=== PATIENT | female | born 1965 | race Caucasian/White ===

== ENCOUNTER 2016-08-29 16:39 | Emergency (ER) | payer BC, MEDICAID ==
[2016-08-29 18:31] VITALS: BP 130/65
--- NOTE | 2016-08-29 18:53 | UC ---
Complaint Female HPI - HPI Summary HPI Summary: Patient presents to ED with CC of flu like symptoms and urinary symptoms including fatigue, sore throat, nausea, weakness, decreased urination and body aches x 2 days. She has had a flu vaccination this year. She endorses sick contacts. She denies travel. She denies constipation, diarrhea, abd pain or back pain. Denies previous UTI's. - History Of Current Complaint Chief Complaint: UCGeneralIllness Stated Complaint: URINARY Time Seen by Provider: 08/29/16 17:57 Hx Obtained From: Patient Hx Last Menstrual Period: 07/02/16 ?: No Onset/Duration: Sudden Onset Timing: Constant Severity Initially: Moderate Severity Currently: Moderate Pain Scale Used: 0-10 Numeric Character: Not Applicable Aggravating Factor(s): Coughing Alleviating Factor(s): Nothing Associated Signs And Symptoms: Positive: Fever, Nausea - Risk Factors Ectopic Risk Factor: Maternal Age ^ 30 - Allergies/Home Medications Allergies/Adverse Reactions: Allergies Allergy/AdvReac Type Severity Reaction Status Date / Time Codeine Allergy Intermediate GI Upset Verified 08/29/16 18:31 PMH/Surg Hx/FS Hx/Imm Hx Previously Healthy: Yes Cardiovascular History Of: Reports: Hypertension - Surgical History Surgical History: Yes Surgery Procedure, Year, and Place: c sect x 2, tonsills, dmc's - Family History Known Family History: Positive: Hypertension - Social History Occupation: Unemployed Lives: With Family Alcohol Use: Rare Substance Use Type: None Smoking Status (MU): Never Smoked Tobacco Review of Systems Constitutional: Fever, Chills, Fatigue Skin: Negative Eyes: Negative ENT: Sore Throat Respiratory: Cough Cardiovascular: Negative Gastrointestinal: Vomiting, Diarrhea Genitourinary: Negative Motor: Negative Neurovascular: Negative Neurological: Headache, Weakness Psychological: Negative All Other Systems Reviewed And Are Negative: Yes Physical Exam Triage Information Reviewed: Yes Appearance: Well-Appearing, Well-Nourished Vital Signs: Initial Vital Signs Temp 99.1 F 08/29/16 18:27 Pulse 91 08/29/16 18:27 Resp 18 08/29/16 18:27 BP 130/65 08/29/16 18:27 Pulse Ox 97 08/29/16 18:27 Vital Signs Reviewed: Yes Eye Exam: Normal Eyes: Positive: Conjunctiva Clear ENT Exam: Normal ENT: Positive: Normal ENT inspection, Pharynx normal Dental Exam: Normal Neck exam: Normal Neck: Positive: Supple, Nontender, No Lymphadenopathy Respiratory Exam: Normal Respiratory: Positive: Chest non-tender, Lungs clear Cardiovascular Exam: Normal Cardiovascular: Positive: RRR Abdominal Exam: Normal Abdomen Description: Positive: Nontender, No Organomegaly Bowel Sounds: Positive: Present Musculoskeletal Exam: Normal Musculoskeletal: Positive: Strength Intact, ROM Intact Neurological Exam: Normal Psychological Exam: Normal Psychological: Positive: Normal Response To Family Skin Exam: Normal Complaint Female Dx - Course Course Of Treatment: UA negative. Flu negative. Patient given note for work for 2 days. Afebrile currently. Patient given rx for zofran. Patient OK with discharge and will follow up as needed with her PCP. - Differential Dx/Diagnosis Differential Diagnosis/HQI/PQRI: Pelvic Inflammatory Disease, Renal Colic, Ureteral Stone, Urinary Tract Infection Provider Diagnoses: Upper respiratory viral illness Discharge - Discharge Plan Condition: Stable Disposition: HOME Prescriptions: Ondansetron ODT TAB* [Zofran 4 MG Odt TAB*] 4 mg PO Q6H PRN #10 tab.odt MDD 4 PRN Reason: Nausea Patient Education Materials: Viral Syndrome (ED) Additional Instructions: Humidifier in the home will help. Rest. Drink plenty of fluids. If you feel you cannot get enough fluids, supplement with gatorade or tomato juice. Tylenol 650mg three times daily as needed for fever and discomfort. As you begin to eat again, breads, hot soups, rice, bananas and applesauce will be easy on your stomach. Zofran as needed for nausea. You may take this up to 4 times daily.
== END 2016-08-29 19:20 | disposition home or self-care (01) ==
LOC: UCCORT 16:39
DX: J06.9 Acute upper respiratory infection, unspecified (principal); Z88.5 Allergy status to narcotic agent
CPT/HCPCS: 81003; 99212; G0463

== ENCOUNTER 2016-09-27 14:30 | Emergency (ER) | payer BC, MEDICAID ==
[2016-09-27 15:28] VITALS: BP 127/93
--- NOTE | 2016-09-27 15:47 | UC ---
Respiratory Complaint HPI - HPI Summary HPI Summary: HYLTON, BOdy Aches, fever and chills, SOB and wheezing for the past few days. - History of Current Complaint Chief Complaint: UCRespiratory Stated Complaint: MUSCLE ACHES Time Seen by Provider: 09/27/16 15:25 Hx Obtained From: Patient Hx Last Menstrual Period: 09/11/16 ?: No Onset/Duration: Sudden Onset, Lasting Days Timing: Constant Severity Initially: Mild Severity Currently: Moderate Character: Cough: Nonproductive Aggravating Factors: Exertion, Deep Breaths, Recumbent Position Alleviating Factors: Nothing Associated Signs And Symptoms: Positive: Fever, Chills, Wheezing, URI - Allergies/Home Medications Allergies/Adverse Reactions: Allergies Allergy/AdvReac Type Severity Reaction Status Date / Time Codeine Allergy Intermediate GI Upset Verified 09/27/16 15:28 PMH/Surg Hx/FS Hx/Imm Hx Previously Healthy: Yes Cardiovascular History Of: Reports: Hypertension - Surgical History Surgical History: Yes Surgery Procedure, Year, and Place: c sect x 2, tonsills, d&c's - Family History Known Family History: Positive: Hypertension - Social History Alcohol Use: Daily Alcohol Amount: few beers daily Substance Use Type: None Smoking Status (MU): Current Every Day Smoker Review of Systems Constitutional: Fever, Chills, Fatigue Skin: Negative Eyes: Negative ENT: Negative Respiratory: Shortness Of Breath, Cough Cardiovascular: Negative Gastrointestinal: Negative Genitourinary: Negative Motor: Negative Neurovascular: Negative Musculoskeletal: Arthralgia Neurological: Headache Psychological: Negative All Other Systems Reviewed And Are Negative: Yes Physical Exam Triage Information Reviewed: Yes Appearance: Well-Nourished, Ill-Appearing, Pain Distress Vital Signs: Initial Vital Signs Temp 98.1 F 09/27/16 15:25 Pulse 91 09/27/16 15:25 Resp 14 09/27/16 15:25 BP 127/93 09/27/16 15:25 Pulse Ox 94 09/27/16 15:25 Vital Signs Reviewed: Yes Eye Exam: Normal Eyes: Positive: Conjunctiva Clear ENT: Positive: Pharyngeal erythema, Nasal congestion, TM bulging, Muffled/ hoarse voice Dental Exam: Normal Neck exam: Normal Neck: Positive: Supple Respiratory: Positive: Chest non-tender, No respiratory distress, No accessory muscle use, Wheezing, Inspiration Cardiovascular Exam: Normal Cardiovascular: Positive: RRR, No Murmur, Pulses Normal Abdominal Exam: Normal Abdomen Description: Positive: Nontender, No Organomegaly, Soft Bowel Sounds: Positive: Present Musculoskeletal Exam: Normal Musculoskeletal: Positive: Strength Intact, ROM Intact, No Edema Neurological Exam: Normal Neurological: Positive: Alert, Muscle Tone Normal Psychological Exam: Normal Skin Exam: Normal UC Diagnostic Evaluation - Laboratory O2 Sat by Pulse Oximetry: 94 Respiratory Course/Dx - Course Course Of Treatment: hx obtained, exam performed, meds reviewed, rapid flu obtained. - Differential Dx/Diagnosis Differential Diagnosis/HQI/PQRI: Asthma, Bronchitis, Laryngitis, Lower Resp Infection, Sinusitis Provider Diagnoses: Bronchitis. Fever Discharge - Discharge Plan Condition: Stable Disposition: HOME Prescriptions: Albuterol HFA INHALER* [Ventolin HFA Inhaler*] 2 puff INH Q4H PRN #1 mdi PRN Reason: Cough predniSONE TAB* [Deltasone TAB*] 40 mg PO DAILY #14 tab Patient Education Materials: Acute Bronchitis (ED) Forms: *Work Release Referrals: Ashley Harmon PA [Primary Care Provider] - Additional Instructions: 1. Take the medications as prescribed. 2. Increase your fluid intake and get plenty of rest. 3. Ibuprofen and tylenol for pain and fever. 4. follow up with any worsening symptoms.
== END 2016-09-27 16:14 | disposition home or self-care (01) ==
LOC: UCCORT 14:30
DX: J40 Bronchitis, not specified as acute or chronic (principal); R50.9 Fever, unspecified; I10 Essential (primary) hypertension; Z88.5 Allergy status to narcotic agent; F17.210 Nicotine dependence, cigarettes, uncomplicated
CPT/HCPCS: 87502; 99212; G0463

== ENCOUNTER 2017-03-23 16:15 | Emergency (ER) | payer BC, MEDICAID ==
[2017-03-23 16:53] VITALS: BP 141/71
--- NOTE | 2017-03-23 17:00 | UC ---
Neck Pain HPI - HPI Summary HPI Summary: 51 year old female presents with complains of fever, neck pain and congestion. - History of Current Complaint Chief Complaint: UCGeneralIllness Stated Complaint: NECK PAIN FATIGUE ACHY Time Seen by Provider: 03/23/17 16:59 Hx Obtained From: Patient Hx Last Menstrual Period: n/a Timing: Constant Onset/Duration: Sudden Onset Severity: Moderate Pain Scale Used: 0-10 Numeric - 5 Character: Sharp Aggravating Factors: Movement Alleviating Factors: Nothing - Allergies/Home Medications Allergies/Adverse Reactions: Allergies Allergy/AdvReac Type Severity Reaction Status Date / Time Codeine Allergy Intermediate GI Upset Verified 03/23/17 16:53 PMH/Surg Hx/FS Hx/Imm Hx Previously Healthy: Yes - Surgical History Surgical History: Yes Surgery Procedure, Year, and Place: c sect x 2, tonsills, d&c's - Family History Known Family History: Positive: Hypertension - Social History Alcohol Use: Daily Alcohol Amount: few beers daily Substance Use Type: None Smoking Status (MU): Current Every Day Smoker Type: Cigarettes Amount Used/How Often: 1/2 ppd Review Of Systems Constitutional: Positive: Fever, Chills, Fatigue Eyes: Positive: Negative ENT: Positive: Negative Respiratory: Positive: Negative Cardiovascular: Positive: Negative Gastrointestinal: Positive: Negative Genitourinary: Positive: Negative Musculoskeletal: Positive: Myalgia, Other: - neck pain Neurological: Positive: Negative Psychological: Positive: Negative All Other Systems Reviewed And Are Negative: Yes Physical Exam Triage Information Reviewed: Yes Appearance: Ill-Appearing Vital Signs: Initial Vital Signs Temp 36.8 C 03/23/17 16:45 Pulse 89 03/23/17 16:45 Resp 16 03/23/17 16:45 BP 141/71 03/23/17 16:45 Pulse Ox 98 03/23/17 16:45 Vital Signs Reviewed: Yes Eye Exam: Normal ENT Exam: Normal Dental Exam: Normal Neck exam: Normal Neck: Positive: 1 Respiratory Exam: Normal Cardiovascular Exam: Normal Abdominal Exam: Normal Musculoskeletal Exam: Normal Neurological Exam: Normal Psychological Exam: Normal Skin Exam: Normal Neck Pain Course/Dx - Differential Dx/Diagnosis Provider Diagnoses: fever. bodyaches. neck pain Discharge - Discharge Plan Condition: Stable Disposition: HOME Patient Education Materials: Weakness (ED), Fatigue (ED), Back Pain (ED) Forms: *Work Release Referrals: Ashley Harmon PA [Primary Care Provider] -
== END 2017-03-23 17:25 | disposition home or self-care (01) ==
LOC: UCCORT 16:15
DX: M54.2 Cervicalgia (principal); R50.9 Fever, unspecified; F17.210 Nicotine dependence, cigarettes, uncomplicated; Z88.6 Allergy status to analgesic agent
CPT/HCPCS: 87502; 99211; G0463

== ENCOUNTER 2018-01-22 20:51 | Emergency (ER) | payer BC, MEDICAID ==
--- OUTSIDE RECORDS SUMMARY | 2018-01-22 21:04 | XMS REPORT ---
:1965 External Reference #:[id number] Author Organization [facility] M.D. Address [address] [place] [address] Phone [phone] Care Team Providers Name Role Phone Ashley Harmon PA Care Team Information Service Desk Director Unavailable Payers Type Date Identification Numbers Payment Provider Subscriber Commercial Effective: Policy Number: [id number] / [place]- Ppo Arthur Yelena 2013 PayID: [id number] [address] [address] [place] [address] Medigap Part B Effective: Policy Number: Medicaid [facility] Ramila Reeveslon 2008 [id number] [employer] Expires: 2018 Group Name: 1 2 B [address] PayID: [id number] [place] [address] Problems Date Description Provider Status Onset: 04/26/2011 Essential hypertension Ashley Harmon, PA Active Onset: 04/26/2011 Basal Cell Carcinoma Skin ,Site Unspecified Ashley Harmon PA Active Onset: 04/26/2011 Asthma without status asthmaticus Ashley Harmon, PA Active Onset: 04/26/2011 Allergic rhinitis Ashley Harmon, PA Active Onset: 04/26/2011 Anxiety state Ashley Harmon, PA Active Onset: 04/26/2011 Benign essential hypertension Ashley Harmon, PA Active Onset: 04/26/2011 Gastroesophageal reflux disease Ashley Harmon, PA Active Onset: 01/01/2012 Psoriasis Ashley Harmon, PA Active Onset: 11/06/2013 Posttraumatic stress disorder Ashley Harmon PA Active Social History Type Date Description Comments Marital Status Has been 1 time Lives With Spouse Lives With Children Pets 1 cat Pets 1 dog 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 for nausea Azelastine HCL 05/22/ Active Solution 0.05% 6ml one drop in H10.45 [facility] (Ophthalmic) 2015 each eye [place]an twice a day os, M.D. Budesonide 05/22/ Active Suspension 32mcg/Act 8.600 2 sprays J30.9 [facility] 2015 gm each [place] nostril os, M.D. daily Loratadine 05/22/ Active Tablets 10mg 30tab 1 by mouth J30.9 [facility] 2015 s every day [place] os, M.D. Duloxetine HCL 02/20/ Active Caps DR 60mg 30cap Take 1 [facility] 2015 Part s Capsule By Castellan Mouth Every os, M.D. Day Clobetasol 11/23/ Active Foam 0.05% 50uni apply to [facility] Propionate 2014 ts scalp twice Castellan daily as os, M.D. needed for psoriasis. pt needs appt for refills Lisinopril-Hydr 10/08/ Active Tablets 20-12.5mg 30tab Take 1 [facility] ochlorothiazide 2013 s Tablet By Castellan Mouth Every os, M.D. Day,Needs Appt For Further Med Refills Olux 07/02/ Active Foam 0.05% 50uni apply to L40.0 [facility]enez 2013 ts scalp twice Castellan a day as os, M.D. needed for psoriasis Triamcinolone 04/23/ Active Cream 0.025% 60gra apply to [facility] Acetonide 2011 ms affected [place]an area twice os, M.D. a day for 2-3 days as need for dermatiits Dovonex 04/23/ Active Cream 0.005% 60uni apply to [facility]enez 2011 ts affected [place] area twice os, M.D. a day as directed Omeprazole 03/13/ Active Capsules DR 20mg 30cap Take One [facility]enez 2011 s Capsule By [place]ellan Mouth Every os, M.D. Day Needs Appt For Further Refills Cymbalta 11/01/ Active Caps DR 60mg 30cap take one [facility]enez 2011 Part s capsule by Castellan mouth every os, M.D. day,needs appt for further refill Zestorectic 10/08/ Hx 20/12.5mg 90uni one qd [facility] 2014 - ts Castellan 10/07/ os, M.D. 2014 Campral 10/18/ Hx Tablets DR 333mg 30tab one tid 303.92 [facility] 2012 - s [place]an 01/28/ os, M.D. 2012 Amoxicillin 01/22/ Hx Tablets 875mg 20tab 1 po bid 461.1 [facility] 2011 - s [place]an 04/02/ os, M.D. 2012 Amlodipine 07/11/ Hx Tablets 5mg 90tab Take 1 I10 [facility] Besylate 2011 - s Tablet By Castellan 06/22/ Mouth Every os, M.D. 2015 Day Lisinopril/Hydr 05/11/ Hx Tablets 20-12.5mg 90tab take one 401.9 [facility] ochlorothiazide 2010 - s tablet by Castellan 10/08/ mouth daily os, M.D. 2013 Immunizations CPT Code Status Date Vaccine Reaction Lot # [id number] Given 02/22/2016 Influenza risk & benefits [id number] Vac,Quad,Split=>3 Yrs discussed [id number] 09043 Given 03/29/2015 Influenza risk & benefits flu>3 [id number] s Vac,Quad,Split=>3 Yrs discussed 08475 Given 04/02/2013 Flu Triv Old Code risk & benefits flu [id number] discussed 38832 Given 04/01/2012 Flu Triv Old Code [id number] 71523 Given 03/28/2011 Tdap Vaccine over 7 yrs old 46113 Given 03/28/2011 Flu Triv Old Code 75379 Given 03/01/2010 Flu Triv Old Code 23829 Given 02/26/2008 Flu Triv Old Code Vital Signs Date Vital Result Comment 01/07/2018 Weight 183.00 lb BP Systolic 140 mmHg BP Diastolic 80 mmHg 10/31/2017 Weight 185.00 lb BP Systolic 170 mmHg BP Diastolic 90 mmHg 07/23/2017 Weight 187.00 lb Heart Rate 104 /min Body Temperature 100.2 F O2 % BldC Oximetry 99 % 07/03/2017 Weight 186.00 lb BP Systolic 134 mmHg BP Diastolic 80 mmHg Height 69 inches 5'9" Heart Rate 78 /min Body Temperature 98.0 F Respiratory Rate 12 /min BMI (Body Mass Index) 27.5 kg/m2 06/15/2017 BP Systolic 130 mmHg BP Diastolic 84 mmHg 06/15/2017 Weight 190.00 lb BP Systolic 150 mmHg BP Diastolic 84 mmHg 05/09/2017 Weight 185.00 lb BP Systolic 160 mmHg BP Diastolic 90 mmHg 12/07/2016 Weight 192.00 lb BP Systolic 142 mmHg BP Diastolic 90 mmHg 06/30/2016 Weight 197.00 lb BP Systolic 134 mmHg BP Diastolic 82 mmHg Height 69 inches 5'9" Heart Rate 76 /min Body Temperature 98.7 F Respiratory Rate 14 /min BMI (Body Mass Index) 29.1 kg/m2 05/22/2016 Weight 191.00 lb BP Systolic 130 mmHg BP Diastolic 78 mmHg 02/22/2016 Weight 186.00 lb BP Systolic 134 mmHg BP Diastolic 80 mmHg 06/22/2015 Weight 185.00 lb BP Systolic 130 mmHg BP Diastolic 80 mmHg Height 69 inches 5'9" Heart Rate 78 /min Body Temperature 98.8 F Respiratory Rate 14 /min BMI (Body Mass Index) 27.3 kg/m2 03/29/2015 Weight 186.00 lb BP Systolic 130 mmHg BP Diastolic 78 mmHg 10/07/2014 Weight 187.00 lb BP Systolic 128 mmHg BP Diastolic 78 mmHg 06/18/2014 Weight 165.00 lb BP Systolic 130 mmHg BP Diastolic 86 mmHg Height 68.45 inches 5'8.45" Heart Rate 87 /min Body Temperature 98.8 F O2 % BldC Oximetry 97 % BMI (Body Mass Index) 24.8 kg/m2 12/19/2013 Weight 156.00 lb BP Systolic 120 mmHg BP Diastolic 80 mmHg Body Temperature 98.6 F 09/30/2013 Weight 152.00 lb BP Systolic 124 mmHg BP Diastolic 74 mmHg 07/02/2013 Weight 153.00 lb BP Systolic 126 mmHg BP Diastolic 74 mmHg 04/02/2013 Weight 163.00 lb BP Systolic 130 mmHg BP Diastolic 80 mmHg Height 68.6 inches 5'8.60" Heart Rate 78 /min Body Temperature 98.4 F Respiratory Rate 12 /min BMI (Body Mass Index) 24.3 kg/m2 03/07/2013 Weight 167.00 lb BP Systolic 130 mmHg BP Diastolic 80 mmHg 01/28/2013 BP Systolic 128 mmHg BP Diastolic 74 mmHg 01/28/2013 Weight 173.00 lb BP Systolic 130 mmHg BP Diastolic 80 mmHg 01/06/2013 BP Systolic 130 mmHg BP Diastolic 70 mmHg 01/06/2013 Weight 177.00 lb BP Systolic 140 mmHg BP Diastolic 78 mmHg 12/24/2012 BP Systolic 120 mmHg BP Diastolic 80 mmHg 12/24/2012 Weight 177.00 lb BP Systolic 140 mmHg BP Diastolic 80 mmHg 10/31/2012 Weight 176.00 lb BP Systolic 120 mmHg BP Diastolic 76 mmHg 10/18/2012 BP Systolic 130 mmHg BP Diastolic 80 mmHg 10/18/2012 Weight 181.00 lb BP Systolic 140 mmHg BP Diastolic 88 mmHg 10/09/2012 Weight 176.00 lb BP Systolic 130 mmHg BP Diastolic 80 mmHg 04/01/2012 Weight 184.00 lb BP Systolic 128 mmHg BP Diastolic 80 mmHg Height 66 inches 5'6" Heart Rate 80 /min Body Temperature 98.6 F Respiratory Rate 16 /min BMI (Body Mass Index) 29.7 kg/m2 01/23/2012 Weight 180.00 lb Height 66.6 inches 5'6.60" Body Temperature 98.8 F BMI (Body Mass Index) 28.5 kg/m2 Results Test Date Test Result H/L Range Note Rapid Influenza A & B 07/23/2017 Influenza A Molecular NEGATIVE Negative 1 Molecular Influenza B Molecular NEGATIVE Negative Laboratory test 07/23/2017 Rapid Influenza A & SEE RESULT BELOW 2, 3 finding B Antigen Laboratory test 07/03/2017 [facility] Pap [facility] 4 finding <SEE NOTE> Basic Metabolic 06/12/2017 Sodium 140 mmol/L 133-145 Panel Potassium 4.4 mmol/L 3.5-5.0 Chloride 103 mmol/L 101-111 Co2 Carbon Dioxide 29 mmol/L 22-32 Anion Gap 8 mmol/L 2-11 Glucose 117 mg/dL High 70-100 Blood Urea Nitrogen 18 mg/dL 6-24 Creatinine 0.64 mg/dL 0.51-0.95 BUN/Creatinine Ratio 28.1 High 8-20 Calcium 9.6 mg/dL 8.6-10.3 Egfr Non- 97.1 >60 Egfr 124.8 >60 5 Laboratory test finding 06/12/2017 Hemoglobin A1c 6.1 % High 4.0-5.6 6 Vitamin D Total 25(Oh) 39.0 ng/mL 20-50 TSH (Thyroid Stim Horm) 2.47 mcIU/mL 0.34-5.60 Lipid Profile (Trig/Chol/HDL) 06/12/2017 Triglycerides 280 mg/dL 7 Cholesterol 228 mg/dL 8 HDL Cholesterol 36.3 mg/dL 9 LDL Cholesterol 136 mg/dL 10 Liver Function Panel 06/12/2017 Total Protein 6.6 g/dL 6.4-8.9 Albumin 4.2 g/dL 3.2-5.2 Globulin 2.4 g/dL 2-4 Albumin/Globulin Ratio 1.8 1-3 Total Bilirubin 0.50 mg/dL 0.2-1.0 Direct Bilirubin 0.10 mg/dL 0.03-0.18 Indirect Bilirubin 0.4 mg/dL 0.3-1.0 Alkaline Phosphatase 82 U/L 34-104 Alt 13 U/L 7-52 Ast 12 U/L Low 13-39 Ua RFX Micro & Culture II 05/17/2017 Urine Color YELLOW Yellow 11 Urine Clarity CLEAR Clear 11 Urine Glucose - Dipstick NEGATIVE mg/dL Negative 11 Urine Bilirubin - Dipstick NEGATIVE Negative 11 Urine Ketone NEGATIVE mg/dL Negative 11 Urine Specific Lawrence 1.020 1.010-1.030 11 Urine Blood NEGATIVE Negative 11 Urine PH 6.0 Low 6.5-7.5 11 Urine Protein - Dipstick NEGATIVE mg/dL Negative 11 Urine Urobilinogen - Dipstick 0.2 E.U./dL 0.2-1.0 11 Urine Nitrite - Dipstick NEGATIVE Negative 11 Urine Leuk Esterase NEGATIVE Negative 11 Source: URINE, CLEAN CAT <SEE NOTE> 11, 12 CBS W/Automated Diff 05/17/2017 White Blood Count 9.1 K/uL 3.1-10.7 11 Red Blood Count 4.57 M/uL 3.90-5.40 11 Hemoglobin 14.9 gm/dL 11.6-15.8 11 Hematocrit 43.1 % 36.0-46.1 11 Mean Cell Volume 94.3 fl 80.9-99.0 11 Mean Corpuscular HGB 32.6 pg 25.9-32.7 11 Mean Corpuscular HGB Conc 34.6 g/dL High 30.8-34.3 11 Platelet Count 254 K/uL 155-360 11 Red Cell Distri Width SD 44.9 fl 3-47 11 Red Cell Distri Width %CV 13.4 % 11.7-14.4 11 Mean Platelet Volume 11.2 fL 8.9-12.4 11 Neut% 61.5 % 40.4-72.8 11 Lymph % 28.8 % 20.0-42.0 11 [place] % 7.8 % 4.3-13.2 11 Eo% 1.7 % 0.0-6.6 11 Bas% 0.2 % 0.0-1.1 11 Neut# 5.58 K/uL 1.8-7.0 11 Lymph # 2.61 K/uL 1.0-4.0 11 [place] # 0.71 K/uL 0.3-0.9 11 Eos # 0.15 K/uL 0.0-0.5 11 Baso # 0.02 K/uL 0.0-0.1 11 Comprehensive Metabolic Panel 05/17/2017 Glucose 182 mg/dL High 74-106 11 BUN 12 mg/dL 7-18 11 Creatinine 0.8 mg/dL 0.6-1.3 11 Glom Filtration Rate, Estimate >60 mL/min >60 11 If >60 mL/min >60 11, 13 BUN/Creat 15.0 ratio 11 Sodium 138 mmol/L 136-145 11 Potassium 3.5 mmol/L 3.5-5.1 11 Chloride 104 mmol/L 98-107 11 Carbon Dioxide 27 mmol/L 21-32 11 Anion Gap 7 mEq/L Low 8-16 11 Calcium 9.1 mg/dL 8.5-10.1 11 Total Protein 7.5 g/dL 6.4-8.2 11 Albumin 3.9 g/dL 3.4-5.0 11 Globulin 3.6 g/dL 1.9-4.3 11 Alb/Glob 1.1 ratio 11 Bilirubin,Total 0.4 mg/dL 0.2-1.0 11 Sgot/Ast 10 U/L Low 15-37 11, 14 SGPT/Alt 24 U/L 12-78 11 Alkaline Phosphatase 99 U/L 45-117 11 Laboratory test finding 05/17/2017 TSH Reflex FT4 and/or 0.83 uIU/mL 0.30 -4.20 11 FT3 HCG,Serum (Qualitative) NEGATIVE (Negative) 11, 15 Laboratory test 01/11/2017 Rubella IgG 2.60 index Immune >0.99 16, 17 finding Antibody Laboratory test 01/11/2017 Rubeola Antibodies, 31.9 AU/mL Immune >29.9 16, 18 finding Igg Mumps Antibodies, Igg 139.0 AU/mL Immune >10.9 16, 19 Laboratory test finding 06/30/2016 [facility] Pap [facility] 20 <SEE NOTE> Xray 05/25/2016 bilateral <pending> mammogram Laboratory test finding 06/22/2015 Cytology Interface SEE RESULT BELOW 21 Order Laboratory test finding 06/18/2014 ThinPrep Pap: See Note 22 Cervix/Endocx Comprehensive Metabolic 12/13/2013 Glucose 86 mg/dL 76-115 Panel BUN 12 mg/dL 5-23 Creatinine 0.5 mg/dL 0.5-1.4 Glom Filtration Rate, Estimate >60 mL/min >60 If >60 mL/min >60 23 BUN/Creat 24.0 ratio Sodium 140 mmol/L 136-145 Potassium 3.8 mmol/L 3.5-5.1 Chloride 107 mmol/L 98-107 Carbon Dioxide 27 mEq/L 18-29 Anion Gap 10 mEq/L 8-16 Calcium 9.1 mg/dL 8.5-10.1 Total Protein 6.8 g/dL 6.3-8.0 Albumin 3.4 g/dL Low 3.5-5.0 Globulin 3.4 g/dL 1.9-4.3 Alb/Glob 1.0 ratio Bilirubin,Total 0.3 mg/dL 0.2-1.2 Sgot/Ast 12 U/L Low 16-40 SGPT/Alt 24 U/L Low 30-65 Alkaline Phosphatase 86 U/L 50-136 CBS W/Automated Diff 12/13/2013 White Blood Count 8.1 K/uL 3.1-10.7 Red Blood Count 4.35 M/uL 3.90-5.40 Hemoglobin 11.1 gm/dL Low 11.6-15.8 Hematocrit 34.2 % Low 36.0-46.1 Mean Cell Volume 78.6 fl Low 80.9-99.0 Mean Corpuscular HGB 25.5 pg Low 25.9-32.7 Mean Corpuscular HGB Conc 32.5 g/dL 30.8-34.3 Platelet Count 286 K/uL 155-360 Red Cell Distri Width SD 47.9 fl High 3-47 Red Cell Distri Width %CV 17.0 % High 11.7-14.4 Mean Platelet Volume 10.9 fL 8.9-12.4 Neut% 49.8 % 40.4-72.8 Lymph % 37.3 % 17.0-46.1 [place] % 10.4 % 4.3-13.2 Eo% 2.1 % 0.0-6.6 Bas% 0.4 % 0.0-1.1 Neut# 4.01 K/uL 1.0-7.0 Lymph # 3.00 K/uL 0.8-3.4 [place] # 0.84 K/uL 0.3-0.9 Eos # 0.17 K/uL 0.0-0.5 Baso # 0.03 K/uL 0.0-0.1 Laboratory test finding 12/13/2013 Urine HCG (Qualitative) NEGATIVE Negative 24 Urine Screen 12/13/2013 Urine Color YELLOW Yellow Urine Clarity CLEAR Clear Urine Glucose - Dipstick NEGATIVE mg/dL Negative Urine Bilirubin - Dipstick NEGATIVE Negative Urine Ketone NEGATIVE mg/dL Negative Urine Specific Lawrence <=1.005 Low 1.010-1.030 Urine Blood NEGATIVE Negative Urine PH 6.0 Low 6.5-7.5 Urine Protein - Dipstick NEGATIVE mg/dL Negative Urine Urobilinogen - Dipstick 0.2 E.U./dL 0.2-1.0 Urine Nitrite - Dipstick NEGATIVE Negative Urine Leuk Esterase NEGATIVE Negative Comprehensive Metabolic Panel 10/05/2013 Glucose 76 mg/dL 76-115 BUN 12 mg/dL 5-23 Creatinine 0.6 mg/dL 0.5-1.4 Glom Filtration Rate, Estimate >60 mL/min >60 If >60 mL/min >60 25 BUN/Creat 20.0 ratio Sodium 143 mmol/L 136-145 Potassium 4.1 mmol/L 3.5-5.1 Chloride 110 mmol/L High 98-107 Carbon Dioxide 28 mEq/L 18-29 Anion Gap 9 mEq/L 8-16 Calcium 8.8 mg/dL 8.5-10.1 Total Protein 6.3 g/dL 6.3-8.0 Albumin 3.2 g/dL Low 3.5-5.0 Globulin 3.1 g/dL 1.9-4.3 Alb/Glob 1.0 ratio Bilirubin,Total 0.2 mg/dL 0.2-1.2 Sgot/Ast 12 U/L Low 16-40 SGPT/Alt 22 U/L Low 30-65 Alkaline Phosphatase 86 U/L 50-136 Laboratory test finding 10/05/2013 Lipase 135 U/L 28-380 HCG Serum, Qualitative NEGATIVE CBC W/Automated Diff 10/05/2013 White Blood Count 8.1 K/uL 3.1-10.7 Red Blood Count 4.04 M/uL 3.90-5.40 Hemoglobin 10.4 gm/dL Low 11.6-15.8 Hematocrit 32.5 % Low 36.0-46.1 Mean Cell Volume 80.4 fl Low 80.9-99.0 Mean Corpuscular HGB 25.7 pg Low 25.9-32.7 Mean Corpuscular HGB Conc 32.0 g/dL 30.8-34.3 Platelet Count 295 K/uL 155-360 Red Cell Distri Width SD 48.8 fl High 3-47 Red Cell Distri Width %CV 17.0 % High 11.7-14.4 Mean Platelet Volume 11.0 fL 8.9-12.4 Neut% 54.8 % 40.4-72.8 Lymph % 32.1 % 17.0-46.1 [place] % 11.2 % 4.3-13.2 Eo% 1.5 % 0.0-6.6 Bas% 0.4 % 0.0-1.1 Neut# 4.43 K/uL 1.0-7.0 Lymph # 2.59 K/uL 0.8-3.4 [place] # 0.90 K/uL 0.3-0.9 Eos # 0.12 K/uL 0.0-0.5 Baso # 0.03 K/uL 0.0-0.1 Urine Screen 10/05/2013 Urine Color YELLOW Yellow Urine Clarity CLEAR Clear Urine Glucose - Dipstick NEGATIVE mg/dL Negative Urine Bilirubin - Dipstick NEGATIVE Negative Urine Ketone NEGATIVE mg/dL Negative Urine Specific [place] <=1.005 Low 1.010-1.030 Urine Blood NEGATIVE Negative Urine PH 6.0 Low 6.5-7.5 Urine Protein - Dipstick NEGATIVE mg/dL Negative Urine Urobilinogen - Dipstick 0.2 E.U./dL 0.2-1.0 Urine Nitrite - Dipstick NEGATIVE Negative Urine Leuk Esterase NEGATIVE Negative Laboratory test finding 10/05/2013 Stool Occult Blood-Single See Note 26 Spec Laboratory test finding 04/02/2013 ThinPrep Pap: Cervix/Endocx See Note 27 Laboratory test finding 01/10/2013 Skin Biopsy See Note 28 Basic Metabolic Panel 10/09/2012 Glucose 89 mg/dL 76-115 BUN 10 mg/dL 5-23 Creatinine 0.6 mg/dL 0.5-1.4 Glom Filtration Rate, Estimate >60 mL/min >60 If >60 mL/min >60 29 BUN/Creat 16.6 ratio Sodium 139 mmol/L 136-145 Potassium 4.3 mmol/L 3.5-5.1 Chloride 104 mmol/L 98-107 Carbon Dioxide 29 mEq/L 18-29 Anion Gap 10 mEq/L 8-16 Calcium 9.3 mg/dL 8.5-10.1 CBC W/Automated Diff 10/09/2012 White Blood Count 7.5 K/uL 3.1-10.7 Red Blood Count 4.49 M/uL 3.90-5.40 Hemoglobin 11.0 gm/dL Low 11.6-15.8 Hematocrit 35.4 % Low 36.0-46.1 Mean Cell Volume 78.8 fl Low 80.9-99.0 Mean Corpuscular HGB 24.5 pg Low 25.9-32.7 Mean Corpuscular HGB Conc 31.1 g/dL 30.8-34.3 Platelet Count 433 K/uL High 155-360 Red Cell Distri Width SD 46.9 fl 3-47 Red Cell Distri Width %CV 16.5 % High 11.7-14.4 Mean Platelet Volume 10.7 fL 8.9-12.4 Neut% 51.9 % 40.4-72.8 Lymph % 35.3 % 17.0-46.1 [place] % 10.3 % 4.3-13.2 Eo% 2.1 % 0.0-6.6 Bas% 0.4 % 0.0-1.1 Neut# 3.91 K/uL 1.0-7.0 Lymph # 2.66 K/uL 0.8-3.4 [place] # 0.78 K/uL 0.3-0.9 Eos # 0.16 K/uL 0.0-0.5 Baso # 0.03 K/uL 0.0-0.1 LDL Cholesterol Profile 10/09/2012 Cholesterol 262 mg/dL High 120-200 Triglycerides 216 mg/dL 16-231 HDL Cholesterol 37 mg/dL 29-83 LDL-Cholesterol 182 mg/dL 62-185 Liver Function Tests 10/09/2012 Total Protein 8.1 g/dL High 6.3-8.0 Albumin 4.1 g/dL 3.5-5.0 Globulin 4.0 g/dL 1.9-4.3 Alb/Glob 1.0 ratio Bilirubin,Total 0.4 mg/dL 0.2-1.2 Bilirubin,Direct < 0.1 mg/dL Low 0.1-0.4 Bilirubin,Indirect 0.3 mg/dL 0.0-0.9 Sgot/Ast 15 U/L Low 16-40 SGPT/Alt 23 U/L Low 30-65 Alkaline Phosphatase 102 U/L 50-136 Laboratory test finding 10/09/2012 TSH Reflex FT4 and/or 1.69 uIU/mL 0.49 -4.67 30 FT3 Laboratory test finding 04/01/2012 ThinPrep Pap: See Note 31 Cervix/Endocx 1 Procurement Assistant: [id number] SEE RESULT BELOW Name: YELENARAMILA : [address]: Ashley AJ Acct: [id number] Unit: [id number] AGE: 51 Location: [facility] Re07/23/17 SEX: F Status: REG REF SPEC: [id number] BELÉN: 07/23/17 [facility] DR: Ashley AJ REQ: [id number] RECD: 07/23/17 STATUS: COMP _ [facility]: ORDERED: Flu A B Request COMMENTS: [id number] Procedure Result Reported Site Rapid Influenza A B Request Final 07/23/172120 ML Specimen received for Influenza A/B Molecular testing * ML - MAIN LAB ([facility]) . END OF REPORT * ML=Testing performed at Main Lab DEPARTMENT OF PATHOLOGY, [address] [place] [address] Julien Perdomo M.D. Director [facility] # [id number] LABORATORY [facility]. [address] [place] [address] GYNECOLOGIC CYTOLOGY REPORT Accession Number: [id number] Source of Specimen(s): A: [facility] Cervical / Endocervical Pap Smear - One Vial Clinical Diagnosis and History: Date of Last Menstrual Period: 10/18 Menstrual History: Post-menopausal Other Clinical Conditions: Last Pap Smear: 06/20 normal REFLEX TO HPV ASSAY IF RESULTS OF THIS PAP ARE ASCUS Specimen Adequacy SATISFACTORY FOR EVALUATION PRESENCE OF ENDOCERVICAL/TRANSFORMATION ZONE COMPONENT General Categorization NEGATIVE FOR INTRAEPITHELIAL LESION OR MALIGNANCY Interpretation NEGATIVE FOR INTRAEPITHELIAL LESION OR MALIGNANCY Reported: 07/05/2017 Electronically Signed Out By Charlotte MCQUEEN(ASCP) [facility] dol 5 Because ethnic data is not always readily available, this report includes an eGFR for both -Americans and non- Americans. The National Kidney Disease Education Program (NKDEP) does not endorse the use of the MDRD equation for patients that are not between the ages of 18 and 70, are , have extremes of body size, muscle mass, or nutritional status, or are non- or non-. According to the National Kidney Foundation, irrespective of diagnosis, the stage of the disease is based on the level of kidney function: Stage Description GFR(mL/min/1.73 m(2)) 1 Kidney damage with normal or decreased GFR 90 2 Kidney damage with mild decrease in GFR 60-89 3 Moderate decrease in GFR 30-59 4 Severe decrease in GFR 15-29 5 Kidney failure <15 (or dialysis) 6 Therapeutic target for the treatment of diabetes mellitus patients is <7% HBA1C, and in selective patients <6.0%. Please refer to [place] Diabetes Association diabetic care guidelines for further information. 7 Desirable: <150 Borderline High: 150-199 High: 200-499 Very High: >500 8 Desirable: <200 Borderline High: 200-239 High: >239 9 Low: <40 Desirable: 40-60 High: >60 10 Desirable: <100 Near Optimal: 100-129 Borderline High: 130-159 High: 160-189 Very High: >189 11 PANIC ATTACK EPISODE, HIGH BP, BODY ACHES 12 URINE, CLEAN CATCH 13 Note: Persistent reduction for 3 months or more in an eGFR <60 mL/min/1.73 m2 defines CKD. Patients with eGFR values >/=60 mL/min/1.73 m2 may also have CKD if evidence of persistent proteinuria is present. The original MDRD equation for estimated GFR is not valid for patients less than 18 years of age. Additional information may be found at www.kdoqi.org. 14 Values below the stated reference ranges of AST and ALT can be seen in normal populations. Clinical correlation is suggested. 15 Method: Quidel QuickVue One-Step Immunoassay 16 PRE EMPLOYMENT 17 Non-immune <0.90 Equivocal 0.90 - 0.99 Immune >0.99 Performed at: [facility] Lab[address] [id number] Superintendent House: Heather Rangel MD, Phone: [phone] 18 Negative <25.0 Equivocal 25.0 - 29.9 Positive >29.9 Presence of antibodies to Rubeola is presumptive evidence of immunity except when acute infection is suspected. 19 Negative <9.0 Equivocal 9.0 - 10.9 Positive >10.9 A positive result generally indicates past exposure to Mumps virus or previous vaccination. Performed at: [facility] [address] [id number] Superintendent House: Heather Rangel MD, Phone: [phone] LABORATORY [facility]. [address] [place] [address] GYNECOLOGIC CYTOLOGY REPORT Accession Number: [id number] Source of Specimen(s): A: [facility] Cervical / Endocervical Pap Smear - One Vial Clinical Diagnosis and History: Date of Last Menstrual Period: 05/19 Other Clinical Conditions: Last Pap Smear: normal REFLEX TO HPV ASSAY IF RESULTS OF THIS PAP ARE ASCUS Specimen Adequacy SATISFACTORY FOR EVALUATION PRESENCE OF ENDOCERVICAL/TRANSFORMATION ZONE COMPONENT General Categorization NEGATIVE FOR INTRAEPITHELIAL LESION OR MALIGNANCY Interpretation NEGATIVE FOR INTRAEPITHELIAL LESION OR MALIGNANCY Reported: 07/05/2016 Electronically Signed Out By Charlotte MCQUEEN(ASCP) [facility] dol 21 SEE RESULT BELOW Name: RAMILA KIRK : [address]: Ashley AJ Acct: [id number] Unit: [id number] AGE: 49 Location: [facility] Re06/22/15 SEX: F Status: REG REF SPEC: [id number] BELÉN: 06/22/15-1516 [facility] DR: Ashley AJ REQ: [id number] RECD: 06/23/15-1102 STATUS: CONRADO LOZA DR: [facility], Lab _ ORDERED: IMAGE ANALYSIS FINAL DIAGNOSIS Negative for Intraepithelial lesion or Malignancy A. Ectocervical/Endocervical Specimen Adequacy: Satisfactory of evaluation Transformation zone component identified Patient Information: HPV: Thin Layer Pap Test w/reflex to high risk HPV RNA testing when ASCUS Actual Specimen Date: 06/22/15 Last Menstrual Date: 06/17/15 ?: N Post Menopausal?: N Hysterectomy?: N Previous Abnormal Pap Smears?:N Signed (signature on file) RICHAR Martinez (ASCP) 06/24 0919 This Pap test was evaluated with the assistance of the ThinPrep Test Imaging System. Due to cytologic findings at the green plumber microscope, comprehensive manual rescreening by a Aerial Applicator Pilot may be required. The Pap Smear is a screening test designed to aid in the detection of premalignant and malignant conditions of the uterine cervix. It is not a diagnostic procedure and should not be used as the sole means of detecting cervical cancer. Both false- positive and false- negative reports do occur. Depending on your risk status, a Pap smear should be obtained and evaluated every 1-3 years. END OF REPORT * ML=Testing performed at Main Lab DEPARTMENT OF PATHOLOGY, [address] [place], [place] [id number] Julien Perdomo M.D. Director [facility] # [id number] CYTOLOGY SCREENER Screened by: Kate GUTIERREZ(ASCP) PAP: FINAL REPORT SPECIMEN ADEQUACY: SPECIMEN SATISFACTORY FOR INTERPRETATION INTERPRETATION: NEGATIVE FOR INTRAEPITHELIAL LESION OR MALIGNANCY COMMENT: THINPREP PREPARED PAP SLIDE # Prepared in the Cytology laboratory from the ThinPrep sample is 1 ThinPrep smear. PAP ACCESSI QUESTIONNAIRE 06/13 PERTINENT CLINICAL HISTORY FOR PAP (CITY DETECTIVE) CYTOLOGY (Check all that apply): ? Post ? Menopause? LMP date: 04/28/14 Last Pap: at [facility]? Y Abnormal Pap? N If Yes, date: Post Hysterectomy? Is cervix present? Y If patient had related surgical procedure: Related Therapy: Significant Clinical History: V72.31 DISCLAIMER: The Pap smear is a screening test and not a diagnostic procedure. False negative and false positive results can and do occur for a number of reasons. Regular screening provides an aid in detecting treatable cervical abnormalities, but should not be used as the only means for detecting cervical dysplasia and carcinoma. Signed Electronically signed KATE WARE 06/22/14 1156 23 Note: Persistent reduction for 3 months or more in an eGFR <60 mL/min/1.73 m2 defines CKD. Patients with eGFR values >/=60 mL/min/1.73 m2 may also have CKD if evidence of persistent proteinuria is present. The original MDRD equation for estimated GFR is not valid for patients less than 18 years of age. Additional information may be found at www.kdoqi.org. 24 FIRST MORNING SPECIMENS GENERALLY CONTAIN THE HIGHEST CONCENTRATION OF HCG AND ARE RECOMMENDED FOR EARLY DETECTION OF . 25 Note: Persistent reduction for 3 months or more in an eGFR <60 mL/min/1.73 m2 defines CKD. Patients with eGFR values >/=60 mL/min/1.73 m2 may also have CKD if evidence of persistent proteinuria is present. The original MDRD equation for estimated GFR is not valid for patients less than 18 years of age. Additional information may be found at www.kdoqi.org. 26 NO SPECIMEN OBTAINED 27 CYTOLOGY SCREENER - CITY DETECTIVE @ 07/15 Screened by: Kate Ware [facility](ASCP) PAP: FINAL REPORT SPECIMEN ADEQUACY: SPECIMEN SATISFACTORY FOR INTERPRETATION INTERPRETATION: NEGATIVE FOR INTRAEPITHELIAL LESION OR MALIGNANCY COMMENT: THINPREP PREPARED PAP SLIDE # Prepared in the Cytology laboratory from the ThinPrep sample is 1 ThinPrep smear. PAP ACCESSI QUESTIONNAIRE 06/13 PERTINENT CLINICAL HISTORY FOR PAP (CITY DETECTIVE) CYTOLOGY (Check all that apply): ? Post ? Menopause? LMP date: 03/18/13 Last Pap: at [facility]? Y Abnormal Pap? N If Yes, date: Post Hysterectomy? Is cervix present? Y If patient had related surgical procedure: Related Therapy: Significant Clinical History: V72.31 DISCLAIMER: The Pap smear is a screening test and not a diagnostic procedure. False negative and false positive results can and do occur for a number of reasons. Regular screening provides an aid in detecting treatable cervical abnormalities, but should not be used as the only means for detecting cervical dysplasia and carcinoma. KATE Hennessy 04/04/13 1440 28 OPERATION/PROCEDURE Excision DIAGNOSIS: "SKIN, LEFT ELBOW, EXCISION": BENIGN, CHRONICALLY IRRITATED EPITHELIAL PROLIFERATION, MOST CONSISTENT WITH ACTINIC KERATOSIS, HYPERTROPHIC TYPE. CLARE/quangf GROSS The specimen is received in formalin labeled, "LEFT ELBOW" is a 0.8 x 0.5 x 0.4 cm. jesus, rubbery skin with a 0.5 x 0.3 x 0.2 cm. warty papule on the surface that is < 0.1 cm. from the nearest edge. The deep edge is inked and the specimen is serially sectioned and submitted in toto in one block. JW/clf MICROSCOPIC Sections reveal squamous epithelium overlying severely basophilically degenerated dermal collagen. There is a mild pleomorphism of large, irregular hyperchromatic nuclei with loss of polarity in the lower layers. The upper layers are characterized by parakeratosis. The margins of resection are free of significant dysplasia. CLINICAL HISTORY Enlarging lesion of left elbow PRE OPERATIVE DIAGNOSIS Skin neoplasm of left elbow REVIEW CODE CODE: I NOHELIA Sauceda MD 01/14/13 1210 29 Note: Persistent reduction for 3 months or more in an eGFR <60 mL/min/1.73 m2 defines CKD. Patients with eGFR values >/=60 mL/min/1.73 m2 may also have CKD if evidence of persistent proteinuria is present. The original MDRD equation for estimated GFR is not valid for patients less than 18 years of age. Additional information may be found at www.kdoqi.org. 30 QUERY: Add FT3 if TSH abnormal? FT3 N QUERY: Add FT4 if TSH Abnormal? FT4 Y 31 CYTOLOGY SCREENER - CITY DETECTIVE @ 07/15 Screened by: RICHAR Ayala(ASCP) PAP: FINAL REPORT SPECIMEN ADEQUACY: SPECIMEN SATISFACTORY FOR INTERPRETATION INTERPRETATION: NEGATIVE FOR INTRAEPITHELIAL LESION OR MALIGNANCY BENIGN REACTIVE SQUAMOUS CELL CHANGES COMMENT: REACTIVE CELLULAR CHANGES ASSOCIATED WITH TYPICAL REPAIR THINPREP PREPARED PAP SLIDE # Prepared in the Cytology laboratory from the ThinPrep sample is 1 ThinPrep smear. PAP ACCESSI QUESTIONNAIRE 06/13 PERTINENT CLINICAL HISTORY FOR PAP (CITY DETECTIVE) CYTOLOGY (Check all that apply): ? N Post ? N Menopause? N LMP date: 03/20/12 Last Pap: at [facility]? Y Abnormal Pap? N If Yes, date: If patient had related surgical procedure: Related Therapy: Console Assembler Patient Number: [id number] Significant Clinical History: V76.2 DISCLAIMER: The Pap smear is a screening test and not a diagnostic procedure. False negative and false positive results can and do occur for a number of reasons. Regular screening provides an aid in detecting treatable cervical abnormalities, but should not be used as the only means for detecting cervical dysplasia and carcinoma. NOHELIA Sauceda MD 04/02/12 1511 Procedures Date CPT Code Description Status Comment 07/03/2017 21900 Ricco Pappas Completed 06/30/2016 54035 Ricco Pappas Completed 06/30/2016 06469 Audiogram, Screen Only Pure Completed Tone 09/21/2015 2 Misc.Charge-Carrying Completed 06/22/2015 86877 Snellen Only Vison Completed 06/22/2015 13290 Audiogram, Screen Only Pure Completed Tone 06/18/2014 65155 Snellen Only Vison Completed 06/18/2014 41704 Audiogram, Screen Only Pure Completed Tone 04/02/2013 49288 Snellen Only Vison Completed 04/02/2013 34286 EKG Completed 04/02/2013 90171 Hearing Test Completed 01/10/2013 54591 Destruction, Any Method 1 Completed Lesion 04/01/2012 59327 Hearing Test Completed 04/01/2012 34831 Color/Snellen Vision Completed 04/01/2012 46398 Snellen Only Vison Completed 01/23/2012 40390 Respiratory Treatment Completed 03/28/2011 34935 Snellen Only Vison Completed 03/28/2011 71744 Hearing Test Completed 11/22/2010 32660 Exc.Malignant Lesion 0.6 - Completed 1.0 CM 10/13/2010 56593 EKG Completed 08/18/2010 Mammogram Completed Document: 08/18/10 - Mammogram 03/07/2010 57818 Exc.Benign Lesion 0.5 CM Or Completed Less 03/07/2010 61968 Shaving Lesion,0.5 CM Or Less Completed 03/01/2010 04780 Snellen Only Vison Completed 09/08/2008 95346 Snellen Only Vison Completed 09/08/2008 72331 Hearing Test Completed Encounters Type Date Location Provider CPT E/M Dx Office Visit 10/31/2017 2:30p [place] [address] N92.4 I10 L40.8 Office Visit 07/23/2017 4:00p [place] [address] J06.9 M79.1 R53.83 R11.2 Office Visit 07/03/2017 9:30a [place] [address] Z00.01 L40.9 Z71.6 Z12.31 E78.5 I10 K21.9 Z12.12 Office Visit 06/15/2017 9:15a [place] [address] R73.9 E78.5 I10 E66.09 Office Visit 05/30/2017 1:45p [place] [address] R73.9 E78.5 R53.83 Office Visit 05/09/2017 11:15a [place] [address] I10 F41.9 J30.9 K21.9 F43.0 L40.0 Z71.6 Office Visit 12/07/2016 2:00p [place] [address] I10 F41.9 F43.0 Z63.0 Office Visit 06/30/2016 9:30a [place] [address] L40.0 F43.21 I10 E78.5 Z12.12 Z01.419 Office Visit 05/22/2016 11:15a [place] [address] I10 L40.0 J30.9 H10.45 Office Visit 04/17/2016 3:30p [place] [address] J18.9 L40.8 Office Visit 02/22/2016 3:30p [place] [address] L40.8 I10 F17.210 F43.12 R63.5 F10.10 Z23 Office Visit 06/22/2015 9:30a [place] [address] Z01.411 L40.0 L30.9 Z12.31 I10 E78.4 Office Visit 03/29/2015 3:15p [place] [address] L40.0 I10 E78.4 F17.210 F43.12 F41.9 Z23 Office Visit 10/07/2014 11:15a [place] [address] 300.00 309.81 305.1 309.28 V61.10 Office Visit 06/18/2014 8:45a [place] [address] V72.31 V76.10 V76.41 300.00 305.1 Office Visit 12/19/2013 9:30a [place] [address] 789.9 787.91 285.8 Office Visit 09/30/2013 10:00a [place] [address] 696.1 401.9 300.02 564.1 Office Visit 07/02/2013 10:45a [place] [address] 696.1 401.9 478.9 466.0 303.90 Office Visit 04/02/2013 9:30a [place] [address] 696.1 401.9 530.81 V76.9 V76.2 V72.31 309.81 272.4 v04.81 V70.0 V76.41 Office Visit 03/07/2013 11:00a [place] [address] 696.1 401.9 079.99 729.1 Office Visit 01/28/2013 10:15a [place] [address] 303.92 696.1 401.9 847.0 Office Visit 01/06/2013 1:30p [place] [address] 303.92 696.1 238.2 Office Visit 12/24/2012 11:45a [place] [address] 303.92 401.9 696.1 Office Visit 10/31/2012 9:45a [place] [address] 272.4 303.92 401.9 696.1 Office Visit 10/18/2012 9:15a [place] [address] 401.9 272.4 303.92 Office Visit 10/09/2012 11:15a [place] [address] 401.9 303.92 300.00 309.0 Office Visit 04/01/2012 9:30a [place] [address] V76.10 V70.0 401.9 696.1 493.90 780.79 v72.31 V04.81 Office Visit 01/23/2012 1:15p [place] [address] 478.9 461.1 786.2 493.90 Office Visit 04/26/2011 9:30a [place] [address] 401.9 696.1 Office Visit 03/28/2011 8:45a [place] [address] V72.31 401.9 696.1 173.91 493.90 V04.81 V06.1 Office Visit 02/14/2011 10:30a [place] [address] 477.9 493.90 401.9 300.00 Office Visit 11/28/2010 10:45a [place] [address] 232.9 300.00 Office Visit 11/14/2010 9:30a [place] [address] 300.00 311 477.9 709.9 Office Visit 10/13/2010 9:15a [place] [address] 300.00 300.01 401.1 786.50 Office Visit 08/15/2010 11:00a Main Office Jimenez Oh M.D. 79[address] 274.11 696.1 Office Visit 04/04/2010 10:15a [place] [address] 558.9 401.1 Office Visit 03/01/2010 9:30a [place] [address] 477.0 719.40 102.2 V72.31 V04.81 Office Visit 02/25/2010 9:30a [place] [address] 477.0 372.30 465.9 Office Visit 06/28/2009 10:45a [place] [address] 380.10 696.1 Office Visit 01/26/2009 4:15p [place] [address] 380.10 Office Visit 12/14/2008 1:30p [place] [address] 795.09 Office Visit 11/04/2008 11:30[place] [address] 380.10 466.0 626.0 696.1 Office Visit 09/08/2008 11:15a [place] [address] V72.31 401.1 300.00 696.1 Office Visit 03/30/2008 2:30p [place] [address] 530.81 Office Visit 03/17/2008 9:00a [place] [address] 300.00 311 873.63 Office Visit 02/25/2008 9:00a [place] [address] 300.00 311 305.1 465.9 Office Visit 12/27/2007 9:00a [place] [address] 350.1 477.9 372.30 300.00 Plan of Care Future Appointment(s):04/09/2018 1:30 pm - Ashley Harmon PA at Main [id number] 9:30 am - Ashley Harmon PA at Main Jkailj6901/07/2018 - Ashley Harmon PAI10 Essential (primary) hypertensionNew Labs:Basic Metabolic PanelCBC Auto DiffHemoglobin A1c (Glyco HGB)Lipid Profile (Trig/Chol/HDL)Liver Function PigyoE09.9 Psoriasis, oyginezlkamI58.6 Tobacco abuse kgornlomhyR16.21 Adjustment disorder with depressed moodR79.9 Abnormal finding of blood chemistry , unspecified
[2018-01-22 21:05] VITALS: BP 154/68
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
== END 2018-01-22 21:56 | disposition home or self-care (01) ==
LOC: UCCORT 20:51
DX: R53.83 Other fatigue (principal); Z63.8 Other specified problems related to primary support group
CPT/HCPCS: 99211; G0463

== ENCOUNTER 2018-06-29 21:22 | Emergency (ER) | payer BC, MEDICAID ==
[2018-06-29 21:41] VITALS: BP 165/92
--- NOTE | 2018-06-29 21:58 | UC ---
UC General HPI - HPI Summary HPI Summary: perianal itching, feels a hard lump externally and has had some fallon blood when she wipes---is not constipated - History of Current Complaint Chief Complaint: UCGI Stated Complaint: PERSONAL Time Seen by Provider: 06/29/18 21:51 Hx Obtained From: Patient Hx Last Menstrual Period: OCTOBER 2017 Onset/Duration: Sudden Onset, Lasting Days - 4 Timing: Constant Pain Intensity: 0 - Allergy/Home Medications Allergies/Adverse Reactions: Allergies Allergy/AdvReac Type Severity Reaction Status Date / Time codeine Allergy Intermediate GI Upset Verified 06/29/18 21:34 PMH/Surg Hx/FS Hx/Imm Hx Previously Healthy: No Cardiovascular History: Hypertension GI/ History: Gastroesophageal Reflux Psychological History: Depression - Surgical History Surgical History: Yes Surgery Procedure, Year, and Place: c sect x 2, tonsills, d&c's - Family History Known Family History: Positive: Hypertension - Social History Occupation: Employed Full-time Lives: With Family Alcohol Use: Weekly Alcohol Amount: few beers daily Substance Use Type: None Smoking Status (MU): Current Every Day Smoker Type: Cigarettes Amount Used/How Often: 1/2 ppd Review of Systems All Other Systems Reviewed And Are Negative: Yes Constitutional: Positive: Negative Skin: Positive: Negative Eyes: Positive: Negative ENT: Positive: Negative Respiratory: Positive: Negative Cardiovascular: Positive: Negative Gastrointestinal: Positive: Other - marissa rectal pain itching hard lump and fallon blood when she wipes Genitourinary: Positive: Negative Motor: Positive: Negative Neurovascular: Positive: Negative Musculoskeletal: Positive: Negative Neurological: Positive: Negative Psychological: Positive: Negative Is Patient Immunocompromised?: No Physical Exam Triage Information Reviewed: Yes Appearance: Well-Appearing, No Pain Distress, Well-Nourished Vital Signs: Initial Vital Signs Temp 98.7 F 06/29/18 21:35 Pulse 96 06/29/18 21:35 Resp 17 06/29/18 21:35 BP 165/92 06/29/18 21:35 Pulse Ox 97 06/29/18 21:35 Vital Signs Reviewed: Yes Eye Exam: Normal Eyes: Positive: Conjunctiva Clear ENT Exam: Normal ENT: Positive: Normal ENT inspection, Hearing grossly normal. Negative: Trismus , Muffled voice, Hoarse voice Dental Exam: Normal Neck exam: Normal Neck: Positive: Supple, Nontender Respiratory Exam: Normal Respiratory: Positive: Chest non-tender, No respiratory distress, No accessory muscle use Cardiovascular Exam: Normal Cardiovascular: Positive: RRR, Pulses Normal, Brisk Capillary Refill Abdomen Description: Positive: Other: - external thrombosed hemorroid noted- Musculoskeletal Exam: Normal Neurological Exam: Normal Psychological Exam: Normal Skin Exam: Other Skin: Positive: Other - usual psorasis Course/Dx - Course Course Of Treatment: keep stools loose with fiber and colace, prep h suppositories and external and may use tucks pads for comfort os well--offered patient surgical referal prefered to follow with pcp and seek her advise regarging a surgeon - Diagnoses Provider Diagnosis: External hemorrhoid, thrombosed Discharge - Sign-Out/Discharge Documenting (check all that apply): Patient Departure All imaging exams completed and their final reports reviewed: No Studies - Discharge Plan Condition: Stable Disposition: HOME Patient Education Materials: Hydrocortisone (Into the rectum), Hemorrhoids (ED) , Hypertension (ED) Referrals: Ashley Harmon PA [Primary Care Provider] - 3 Days - Billing Disposition and Condition Condition: STABLE Disposition: Home
== END 2018-06-29 22:05 | disposition home or self-care (01) ==
LOC: UCCORT 21:22
DX: K64.5 Perianal venous thrombosis (principal); I10 Essential (primary) hypertension; F17.210 Nicotine dependence, cigarettes, uncomplicated; L40.9 Psoriasis, unspecified; Z82.49 Family history of ischemic heart disease and other diseases of the circulatory system; Z88.5 Allergy status to narcotic agent
CPT/HCPCS: 99211; G0463

== ENCOUNTER 2018-12-11 17:20 | Emergency (ER) | payer OTHER ==
--- NOTE | 2018-12-11 18:12 | UC ---
General HPI - HPI Summary HPI Summary: for the past week, pt has been having pains to the back of her head. she describes them as "like a knife" "sharp". the pain occurs mostly with movement of her head. she states they are occurring more often and always very brief. she initially felt there was a correlation to her sinus congestion and assumed it was allergies. she took an Agueda and Aleve x 1 today and noted a little transient relief. she denies similar s/s's in her past but offers she had a CT or MRI of neck about a year ago that showed "a lot of arthritis". pt denies hx injury, current/recent illness. she has no change in vision or speech. she denies and focal numbness or weakness. she has no difficulty with her gait. - History of Current Complaint Chief Complaint: UCGeneralIllness Stated Complaint: SINUS CONGESTION,HEADACHE Time Seen by Provider: 12/11/18 18:04 Hx Obtained From: Patient Hx Last Menstrual Period: OCTOBER 2017 Pain Intensity: 8 - Allergy/Home Medications Allergies/Adverse Reactions: Allergies Allergy/AdvReac Type Severity Reaction Status Date / Time codeine Allergy Intermediate GI Upset Verified 06/29/18 21:34 Home Medications: Home Medications C,E,Zinc,Copper 11/Jxlmv6w/Lut [Ocuvite Adult 50 Plus Softgel] 1 each PO [History] DULoxetine DR SMITH* [Cymbalta CAP*] 60 mg PO DAILY 12/11/18 [History Confirmed ] Lisinopril 20 mg PO DAILY 12/11/18 [History Confirmed 12/11/18] Omeprazole 40 mg PO DAILY 12/11/18 [History Confirmed 12/11/18] Prevagen 1 tab PO DAILY 12/11/18 [History] PMH/Surg Hx/FS Hx/Imm Hx - Additional Past Medical History Additional PMH: psoriasis, OA Cardiovascular History: Hypertension GI/ History: Gastroesophageal Reflux Psychological History: Depression - Surgical History Surgical History: Yes Surgery Procedure, Year, and Place: c sect x 2, tonsills, d&c's - Family History Known Family History: Positive: Hypertension - Social History Alcohol Use: Weekly Alcohol Amount: few beers daily Substance Use Type: None Smoking Status (MU): Current Every Day Smoker Type: Cigarettes Amount Used/How Often: 1/2 ppd Review of Systems All Other Systems Reviewed And Are Negative: Yes Eyes: Negative: Blurred Vision, Diplopia, Photophobia ENT: Positive: Sinus Congestion. Negative: Sore Throat, Ear Ache Respiratory: Negative: Shortness Of Breath, Cough Cardiovascular: Negative: Palpitations, Chest Pain Gastrointestinal: Negative: Abdominal Pain, Vomiting, Diarrhea, Nausea Neurovascular: Negative: Decreased Sensation Musculoskeletal: Negative: Decreased ROM Neurological: Positive: Headache. Negative: Weakness, Paresthesia, Numbness Physical Exam Triage Information Reviewed: Yes Appearance: Well-Appearing Vital Signs: Initial Vital Signs Temp 98.1 F 12/11/18 17:37 Pulse 99 12/11/18 17:37 Resp 16 12/11/18 17:37 BP 161/82 12/11/18 17:37 Pulse Ox 99 12/11/18 17:37 Vital Signs Reviewed: Yes Eyes: Positive: Conjunctiva Clear, Other: - PERRL, EOMI. ENT: Positive: Pharynx normal, TMs normal. Negative: Nasal congestion, Nasal drainage Neck: Positive: Supple, Nontender, No Lymphadenopathy, Other: - No carotid bruits. No c-spine tenderness and ROM is intact. Respiratory: Positive: Lungs clear, Normal breath sounds, No respiratory distress Cardiovascular: Positive: RRR, No Murmur, Pulses Normal - BUE's Abdomen Description: Positive: Nontender, No Organomegaly, Soft Bowel Sounds: Positive: Present Musculoskeletal: Positive: Other: - Thoracic and lumbar spine are non tender. Palaption of the occipital region causes pain on the L. Turn of head to L caused a fleeting pain(reproduced pt's pain). Neurological: Positive: Other: - A&Ox3. CN 2-12 intact. Steady gait. 5/5 strength, 2+ reflexes and sensation intact x4. Psychological: Positive: Age Appropriate Behavior Skin Exam: Normal Skin: Positive: Rashes - scaley plaques c/w psoriasis Diagnostics - Radiology No standard instances Radiology Interpretation Completed By: Radiologist - CT Brain=IMPRESSION: No acute intracranial abnormality. Course/Dx - Differential Dx - Multi-Symptom Differential Diagnoses: Other - non toxic. CT brain NAD. neuro exam is reassuring. do not feel hypertensive urgency/emergency. hx of arthritis c-spine plus current hx and PE is c/w occipital neuralgia. - Diagnoses Provider Diagnosis: Occipital neuralgia of left side Discharge - Sign-Out/Discharge Documenting (check all that apply): Patient Departure All imaging exams completed and their final reports reviewed: Yes - Discharge Plan Condition: Stable Disposition: HOME Prescriptions: Cyclobenzaprine TAB* [Flexeril 10 MG TAB*] 10 mg PO TID #10 tab Ibuprofen TAB* [Motrin TAB* 600 MG] 600 mg PO Q8H #15 tab Patient Education Materials: Acute Headache (ED) Forms: *Work Release Referrals: Ashley Harmon PA [Primary Care Provider] - As Soon As Possible - Billing Disposition and Condition Condition: STABLE Disposition: Home
[2018-12-11 20:07] VITALS: BP 164/93
== END 2018-12-11 20:12 | disposition home or self-care (01) ==
LOC: UCCORT 17:20
DX: M54.81 Occipital neuralgia (principal); I10 Essential (primary) hypertension; F32.9 Major depressive disorder, single episode, unspecified; K21.9 Gastro-esophageal reflux disease without esophagitis; F17.210 Nicotine dependence, cigarettes, uncomplicated
CPT/HCPCS: 70450; 99212; G0463

== ENCOUNTER 2019-09-18 13:09 | Emergency (ER) | payer OTHER ==
[2019-09-18 13:31] VITALS: BP 154/87
--- NOTE | 2019-09-18 13:40 | UC ---
Neck Pain HPI - HPI Summary HPI Summary: 54 yo woman who slipped on icy stairs this morning, falling down four wood stairs, landing on her left side, wrenching her neck and impacting her shoulder and left ribs. Has not used analgesics. Feels stiff and sore. Rested for a while, but came for assessment because of persistent pain. Hx of degenerative disease in cervical spine found on xray in the past, although she does not have chronic neck pain. Has pain with inspiration. No paresthesias. - History of Current Complaint Chief Complaint: UCGeneralIllness Stated Complaint: S/P FALL,HEADACHE,LEFT ARM/RIB INJURY Time Seen by Provider: 09/18/19 13:28 Hx Obtained From: Patient Hx Last Menstrual Period: OCTOBER 2017 Onset/Duration Of Injury/Symptoms: Hours - about 6 hours ago Mechanism Of Injury: Blunt Trauma Timing: Constant Onset/Duration: Sudden Onset Severity: Moderate Pain Intensity: 7 Location: Diffuse - left neck, shoulder, trunk Character: Dull, Aching, Stiff Aggravating Factors: Position, Movement Alleviating Factors: Nothing - aside from rest, has not tried different approaches to pain. Associated Signs & Symptoms: Positive: Negative - Risk Factors Meningitis Risk Factors: Negative - Allergies/Home Medications Allergies/Adverse Reactions: Allergies Allergy/AdvReac Type Severity Reaction Status Date / Time codeine Allergy Intermediate GI Upset Verified 09/18/19 13:24 Home Medications: Home Medications Omeprazole 20 mg PO DAILY 12/11/18 [History Confirmed 09/18/19] Azelastine 0.05% (OPHTH)(NF) [Optivar 0.05% (NF)] 1 drop BOTH EYES BID PRN 04/23 [History Confirmed 09/18/19] Clobetasol 0.05% OINT* 1 applic TOPICAL BID 04/23/19 [History Confirmed 09/18/19 ] DULoxetine DR CAP* [Cymbalta CAP*] 60 mg PO DAILY 04/23/19 [History Confirmed ] Ketoconazole 2 % CREAM (NF) [Nizoral 2% CREAM (NF)] 1 applic TOPICAL DAILY PRN 04/23/19 [History Confirmed 09/18/19] Lisinopril/Hydrochlorothiazide [Lisinopril-Hctz 10-12.5 mg Tab] 1.5 tab PO DAILY 04/23/19 [History Confirmed 09/18/19] Melatonin/Pyridoxine HCl (B6) [Melatonin] 10 mg PO DAILY PRN 04/23/19 [History Confirmed 09/18/19] Multivitamins/Minerals TAB* [Thera M Plus TAB*] 1 tab PO DAILY 04/23/19 [ History Confirmed 09/18/19] Lutein/Zeaxanthin [Ocuvite Lutein 25 25-5 mg] 1 cap PO DAILY 06/11/19 [History Confirmed 09/18/19] PMH/Surg Hx/FS Hx/Imm Hx - Additional Past Medical History Additional PMH: psoriasis Cardiovascular History: Hypertension GI/ History: Gastroesophageal Reflux - Surgical History Surgical History: Yes Surgery Procedure, Year, and Place: c sect x 2, tonsills, d&c's - Family History Known Family History: Positive: Cardiac Disease - mother with arrhythmia, Hypertension, Other - both parents living and well into their 80's - Social History Occupation: Employed Full-time Lives: With Family Alcohol Use: Occasionally Alcohol Amount: few beers daily Substance Use Type: None Smoking Status (MU): Former Smoker Type: Cigarettes Amount Used/How Often: 1/2 ppd When Did the Patient Quit Smoking/Using Tobacco: 2 mos Review of Systems All Other Systems Reviewed And Are Negative: Yes Constitutional: Positive: Negative Skin: Positive: Rash - has severe psoriasis Eyes: Negative: Blurred Vision, Photophobia ENT: Positive: Negative Respiratory: Positive: Other - left rib pain Cardiovascular: Positive: Chest Pain - at site of impact, Other - blood pressure at her primary care office is often in same range as today. She does not do home blood pressure checks. Gastrointestinal: Positive: Negative - uses omeprazole only as needed. Genitourinary: Positive: Negative Motor: Positive: Decreased ROM Neurovascular: Positive: Negative Musculoskeletal: Positive: Myalgia Neurological/Mental Status: Positive: Headache - mild, posterior Psychological: Positive: Negative Is Patient Immunocompromised?: No Physical Exam Triage Information Reviewed: Yes Appearance: Well-Appearing, Pain Distress - moderately uncomfortable seated and with movement. Vital Signs: Initial Vital Signs Temp 98.4 F 09/18/19 13:26 Pulse 100 09/18/19 13:26 Resp 16 09/18/19 13:26 BP 154/87 09/18/19 13:26 Pulse Ox 96 09/18/19 13:26 Eye Exam: Normal ENT: Positive: Pharynx normal, TMs normal Neck exam: Other - No central tenderness to palpation in the cervical or thoracic spine. Neck: Positive: Supple, No Lymphadenopathy, Tenderness @ - left paraspinals Respiratory: Positive: Lungs clear, Normal breath sounds, No respiratory distress Cardiovascular: Positive: RRR, No Murmur Musculoskeletal Exam: Other - Normal cervical curve Musculoskeletal: Positive: Strength Intact, No Edema, ROM Limited @ - No joint line tenderness along the left shoulder joint; left shoulder with active abduction to 90 degrees, pain beyond. Neurological Exam: Normal Neurological: Positive: Alert, Muscle Tone Normal Psychological Exam: Normal Skin Exam: Other - extensive psoriatic plaques on trunks, around ears. Diagnostics - Radiology No standard instances Radiology Interpretation Completed By: Radiologist - Patient Name: ADÁN QUESADA Ordering Physician: Jodie Grimm MD : [id number] Age: 54 Sex: F Location: [facility] Exam Date: 09/18/19 1350 ADM Status: REG ER Observation Date/Time: Order Information: RIBS LT UNI W/PA CH MIN 3 VWS Accession Number: [id number] CPT: 61636 INDICATION: Left rib injury. COMPARISON: There are no relevant prior studies available for comparison. TECHNIQUE: 4 views of the left ribs and dual-energy PA views of the chest were obtained. A radiopaque BB sen the painful region of interest. FINDINGS: The lungs are clear. There is no pleural effusion or pneumothorax. The cardiomediastinal silhouette is within normal limits. The upper abdominal contents are normal. No displaced rib fracture is identified. IMPRESSION: No displaced rib fracture or pneumothorax. <Electronically signed by Ramon Delaney MD in OV> 09/18/19 1438 Dictated By: Ramon Delaney MD Dictated Date/Time: 09/18/19 1435 Transcribed Date/Time: 09/18/19 1435 Copy to: CC:Ashley AJ; Jodie Grimm MD; Ramon Delaney MD Imaging - [facility] - [facility] [address] [address] ph ([phone]) ph ([phone]) ph ([phone]) This report is only to be considered final once signed by the Provider(s) as displayed in the "<Electronically Signed by > " field (s). Absence of a signature indicates the report is in a draft status and still needs to be finalized. In the event this document was created by someone other than the signing Provider, the individual initiating the document will be listed in the "Entered by:" or "Dictated by:" [email or web address]. 1 of 1 Neck Pain Course/Dx - Course Course Of Treatment: Discussed impact of fall causing strains and contusion. Rib views negative for fracture. Acetaminophen for control of pain. - Differential Dx/Diagnosis Differential Dx/HQI/PQRI: Sprain, Strain, Other - contusion, rib fracture Provider Diagnosis: Contusion of rib on left side, Neck muscle strain Discharge ED - Sign-Out/Discharge Documenting (check all that apply): Patient Departure All imaging exams completed and their final reports reviewed: Yes - Discharge Plan Condition: Stable Disposition: HOME Patient Education Materials: Cervical Strain (ED), Rib Contusion (ED) Forms: *Work Release Referrals: Ashley Harmon PA [Primary Care Provider] - Additional Instructions: You have strained the muscles of your neck, and have contusions of the soft tissues in the arm and trunk. You might have pain and stiffness for several weeks, but it should gradually improve. It is best to keep active, adjusting activities to your level of pain. Avoid heavy lifting and repetitive activity, but it is good to be up and walking. Pain should gradually resolve. If you have worsening pain or neck stiffness, please follow up with your primary care doctor. Moving around is helpful, and it is also helpful to ensure that you are taking good deep breaths despite pain in order to keep the lung spaces open. You can safely use acetaminophen for control of pain, taking 650mg up to 4 times per day. - Billing Disposition and Condition Condition: STABLE Disposition: Home
== END 2019-09-18 14:55 | disposition home or self-care (01) ==
LOC: UCCORT 13:09
DX: S20.212A Contusion of left front wall of thorax, initial encounter (principal); S16.1XXA Strain of muscle, fascia and tendon at neck level, initial encounter; W00.1XXA Fall from stairs and steps due to ice and snow, initial encounter; Y93.89 Activity, other specified; Y92.9 Unspecified place or not applicable; I10 Essential (primary) hypertension; K21.9 Gastro-esophageal reflux disease without esophagitis; L40.9 Psoriasis, unspecified; Z79.52 Long term (current) use of systemic steroids; Z79.899 Other long term (current) drug therapy; Z88.5 Allergy status to narcotic agent; Z87.891 Personal history of nicotine dependence
CPT/HCPCS: 99212; G0463